=== PATIENT | male | born 1935 | race Caucasian/White ===

== ENCOUNTER 2018-07-16 16:50 | Inpatient (IN) | payer MEDICARE, OTHER ==
[~2018-07-16] VITALS: Ht 182.9 cm; Wt 59.4 kg
[~2018-07-16 16:50] MED LIST: AMLO5TAB9 PO; ASPI-1169 PO; CARB-93 PO; ENTA200T PO; HYDR-4384 PO; LEVE100023 PO; METO25TA20 PO; PRAM0.253 PO; QUET25TA PO
--- NOTE | 2018-07-16 17:10 | NUR ---
BIB [facility] FOR GEN WEAKNESS X 3DAYS. PT NOTED W R EAR WOUND W REDNESS AND SWELLING, ALSO NOTED W COLSOTOMY. TO ER BED 6, HOOKED TO MONITOR, CHANGED TO GOWN, PROVIDED W WARM BLANKET, DR YOUNG AT BEDSIDE.
[2018-07-16 17:19] LABS: BASOPHILS # (AUTO) 0.1 /CMM (0.0-0.2); BASOPHILS % (AUTO) 0.6 % (0.0-2.0); EOSINOPHILS % (AUTO) 2.6 % (0.0-6.0); HEMATOCRIT 29 % (39-51); HEMOGLOBIN 9.6 g/dL (13.5-17.5); LYMPHOCYTES # (AUTO) 1.8 /CMM (0.8-4.8); LYMPHOCYTES % (AUTO) 21.4 % (20.0-44.0); MEAN CORPUSCULAR HGB CONC 33 g/dl (31.0-36.0); MEAN CORPUSCULAR VOLUME 84 fL (80-96); MONOCYTES # (AUTO) 0.9 /CMM (0.1-1.30); NEUTROPHILS # (AUTO) 5.5 /CMM (1.8-8.9); NEUTROPHILS % (AUTO) 64.4 % (43.0-81.0); PLATELET COUNT (AUTO) 440 /CMM (150-450); RED BLOOD CELL COUNT(AUTO) 3.47 MIL/uL (4.5-6.0); WHITE BLOOD COUNT (AUTO) 8.6 K/uL (4.3-11.0)
[2018-07-16] MEDS ORDERED: MULT-594 PO (17:19)
[2018-07-16] MEDS ORDERED: AMIN30LI24 PO (17:19)
[2018-07-16] MEDS ORDERED: TAMS-12 GT (17:19)
[2018-07-16] MEDS ORDERED: DOCU-141 PO (17:19)
[2018-07-16] MEDS ORDERED: MAGN400O6 GT (17:19)
[2018-07-16] MEDS ORDERED: HYDR-4384 PO (17:19)
[2018-07-16] MEDS ORDERED: ACET-73 PO (17:19)
[2018-07-16] MEDS ORDERED: IV NS 0.9% 1,000 ML BAG IV ONE (17:30)
[2018-07-16 17:37] LABS: APPEARANCE,URINE Clear (CLEAR); BILIRUBIN,URINE Negative (NEGATIVE); BLOOD, URINE Negative Ery/uL (NEGATIVE); COLOR,URINE Yellow (YELLOW); KETONES,URINE Negative (NEGATIVE); LEUKOCYTE ESTERASE ,URINE Trace (NEGATIVE); NITRITE, URINE Negative (NEGATIVE); PROTEIN,URINE Negative (NEGATIVE); UGLUCOSE Negative (NEGATIVE); UROBILINOGEN,URINE 0.2 EU/dL (0.2)
--- NOTE | 2018-07-16 17:42 | NUR ---
PRACTICE OR STUDENT TEACHER AT BEDSIDE.
[2018-07-16 17:44] LABS: ALANINE AMINOTRANSFERASE 8 U/L (12-78); ALKALINE PHOSPHATASE 74 U/L (46-116); ASPARTATE AMINOTRANSFERASE 7 U/L (15-37); BILIRUBIN,DIRECT 0.1 mg/dL (0.0-0.2); BILIRUBIN,TOTAL 0.2 mg/dL (0.2-1.0); CALCIUM, SERUM 8.3 mg/dL (8.5-10.1); CARBON DIOXIDE 32 mmol/L (21-32); CHLORIDE 103 mmol/L (98-107); CREATININE 0.8 mg/dL (0.6-1.3); GLUCOSE 117 mg/dL (74-106); POTASSIUM 4.3 mmol/L (3.5-5.1); SODIUM SERUM 140 mmol/L (136-145); TOTAL PROTEIN, SERUM 7.4 g/dL (6.4-8.2); UREA NITROGEN, BLOOD 20 mg/dL (7-18)
[2018-07-16 17:50] LABS: RBC,URINE 0-2 /HPF (0-2)
[2018-07-16 17:51] LABS: BACTERIA,URINE Few /HPF (None Seen); SQUAMOUS EPITHELIAL CELL,UR Few /HPF (None Seen)
[2018-07-16] MEDS ORDERED: VANCOMYCIN 1 GM in IV D5W 250 ML IV ONE (18:00)
[2018-07-16] MEDS ORDERED: PIPERACILLIN /TAZOBACTAM 3.375 G in IV D5W 50 ML IV ONE (18:00)
--- NOTE | 2018-07-16 18:05 | NUR ---
CALLED PHARMACY TO ORDER IV ATB, PER PHARMACY, THERE IS REACTION BET ZOSYN AND CEFAZOLIN. INFORMED DR YOUNG, PER IT IS OK.
--- NOTE | 2018-07-16 18:07 | NUR ---
MS BED 206-2 GIVEN
--- NOTE | 2018-07-16 18:24 | NUR ---
REPORT GIVEN TO NGOZI SANDOVAL OF MED-SURG UNIT
--- NOTE | 2018-07-16 19:00 | NUR ---
MS RN NOTES RECEIVED PATIENT FROM ED IN STABLE CONDITION. NO DISTRESS NOTED. PATIENT AWAKE A/O X3 WITH EPISODES OF CONFUSION. REORIENTED NEEDED. NO C/O PAIN OR DISCOMFORT. PERIPHERAL LINE INTACT AND PATENT. DR. PEMBERTON MADE AWARE AND AWAITING ADMITTING ORDERS. BED IN LOW LOCK SETTING. BED ALARM ON AND FUNCTIONING PROPERLY. ALL BELONGINGS KEPT NEAR BEDSIDE. WILL CONTINUE TO MONITOR.
--- NOTE | 2018-07-16 19:00 | NUR ---
WHEELED OUT VIA GURNEY BY AN EMT AND TRANSFERRED TO MED-SURG UNIT.
[2018-07-16 20:00] VITALS: BP 104/61
[2018-07-16] MEDS ORDERED: ACETAMINOPHEN 325 MG TABLET PO PRN (23:00)
[2018-07-16] MEDS ORDERED: MAG HYDROX/AL HYDROX/SIMETH 30 ML UDC PO PRN (23:00)
[2018-07-16] MEDS ORDERED: IV NS 0.9% 1,000 ML BAG IV PRN (23:00)
[2018-07-16] MEDS ORDERED: MAGNESIUM HYDROXIDE 30 ML UDC PO PRN (23:00)
[2018-07-16] MEDS ORDERED: MORPHINE SULFATE INJ 2 MG/ML DISP.SYRIN IV PRN (23:00)
[2018-07-16] MEDS ORDERED: ONDANSETRON HCL/PF 4 MG/2 ML VIAL IVP PRN (23:00)
[2018-07-17] MEDS: IV NS 0.9% 1,000 ML IV PRN ×2 (01:54→21:43)
[2018-07-17] MEDS: LORAZEPAM INJ 2 MG/ML VIAL IV PRN ×2 (02:27→23:44)
--- NOTE | 2018-07-17 07:05 | NUR ---
MS RN NOTES PATIENT IN LYING BED EYES CLOSED, EASY TO AROUSE, RESPOND TO VERBAL AND TACTILE STIMULI. NO ACUTE DISTRESS NOTED. BREATHING UNLABORED. NO SOB NOTED. IV ACCESS PATENT AND INTACT, NO REDNESS OR SWELLING NOTED. SAFETY MEASURES IN PLACE. CALL LIGHT WITHIN REACH. WILL CONTINUE TO MONITOR ACCORDINGLY.
--- NOTE | 2018-07-17 07:14 | NUR ---
MS RN NOTES PATIENT ASLEEP IN BED WITH NO DISTRESS NOTED. CALL LIGHT WITHIN REACH. NO FURTHER C/O PAIN OR DISCOMFORT. PERIPHERAL LINE INTACT AND PATENT. OSTOMY BAG INTACT. BED IN LOW LOCK SETTING. BED ALARM ON AND FUNCTIONING PROPERLY. ALL BELONGINGS KEPT NEAR BEDSIDE. WILL ENDORSE TO ONCOMING SHIFT.
[2018-07-17 08:00] VITALS: BP 105/54
[2018-07-17] MEDS: PANTOPRAZOLE 40 MG VIAL IV SCH (08:43)
[2018-07-17] MEDS: ENTACAPONE 200 MG TABLET PO SCH ×3 (08:44→16:43)
[2018-07-17] MEDS: LEVETIRACETAM (250 MG) 250 MG TABLET PO SCH ×2 (08:44→20:26)
[2018-07-17] MEDS: MULTIVITAMINS,THERAGRAN 1 UDTAB TABLET PO SCH (08:44)
[2018-07-17] MEDS: ASPIRIN 81 MG TAB.CHEW PO SCH (08:44)
[2018-07-17] MEDS: DOCUSATE SODIUM 100 MG CAPSULE PO SCH (08:44)
[2018-07-17] MEDS: CARBIDOPA/LEVODOPA 25/100 MG 1 UDTAB PO SCH ×3 (08:45→16:43)
[2018-07-17] MEDS: PROSOURCE / PROSTAT (PYXIS) 30 ML UDC PO SCH (08:45)
[2018-07-17] MEDS: QUETIAPINE FUMARATE 25 MG TABLET PO SCH ×2 (08:45→16:43)
[2018-07-17] MEDS: PRAMIPEXOLE DI-HCL 0.25 MG TABLET PO SCH ×3 (08:45→16:43)
--- NOTE | 2018-07-17 09:59 | NUR ---
WOUND CARE CONSULT: PT PRESENTS WITH STAGE 2 SACRAL ULCER, LEFT LATERAL LEG INTACT DEEP TISSUE INJURY AND RT EAR LESIONS, ALL PRESENT ON ADMISSION. RECOMMEND SURGICAL CONSULT FOR RT EAR. DR ALLEN NOTIFIED OF SURGICAL CONSULT REQUEST. ALL SKIN PROTECTION AND WOUND CARE RECOMMENDATIONS DISCUSSED WITH NURSING STAFF. LOW AIRLOSS BED TO BE PLACED (ISOFLEX). PT IS INCONTINENT. PT IS SOMETIMES AGITATED AND COMBATIVE BUT COOPERATIVE AT TIMES WELL. WILL SEE PRJacinta VINCENT IN AGREEMENT WITH PLAN OF CARE. CURRENT FIONA SCORE IS 13. Addendum: 07/17/18 at 1003 by DELORIS NOYOLA WNDNU Amended: Links added.
[2018-07-17] MEDS ORDERED: HYDROGEL DRESSING 90 GM TUBE TP PRN (10:00)
[2018-07-17] MEDS ORDERED: Z GUARD REMEDY 2 OZ OINT TP PRN (10:00)
[2018-07-17] MEDS: Z GUARD REMEDY 2 OZ OINT TP SCH (11:32)
[2018-07-17] MEDS: HYDROGEL DRESSING 90 GM TUBE TP SCH (11:32)
[2018-07-17] MEDS: VANCOMYCIN 1 GM in IV D5W 250 ML IV SCH (13:06)
[2018-07-17] MEDS ORDERED: FEE PK DOSING 1 MIN EA MC ONE (14:57)
[2018-07-17 16:00] VITALS: BP 113/60
[2018-07-17] MEDS: TAMSULOSIN 0.4 MG CAP.SR.24H GT SCH (17:22)
--- NOTE | 2018-07-17 19:00 | NUR ---
MS RN NOTES PATIENT IN BED ALERT ORIENTED X 3. NO ACUTE DISTRESS NOTED. BREATHING UNLABORED. NO SOB NOTED. IV ACCESS PATENT AND INTACT, NO REDNESS OR SWELLING NOTED. DUE MEDICATIONS GIVEN, NO ASE NOTED. NEEDS ATTENDED AND ANTICIPATED. KEPT CLEAN DRY AND COMFORTABLE. SAFETY MEASURES IN PLACE. CALL LIGHT WITHIN REACH. ENDORSED TO NIGHT NURSE FOR CONTINUITY OF CARE.
[2018-07-17 20:00] VITALS: BP 109/75
[2018-07-17 20:02] VITALS: BP 109/75
--- NOTE | 2018-07-17 20:08 | NUR ---
RN OPENING NOTES RECEIVED PATIENT AWAKE IN BED. PATIENT IS A/O X 3. WITH EPISODES OF CONFUSION. NO SIGNS OF RESPIRATORY DISTRESS. PATIENT DENIES SHORTNESS OF BREATH. IV SITE INTACT. PATIENT DENIES PAIN AT THIS TIME. SAFETY PRECAUTIONS IMPLEMENTED. CALL LIGHT WITHIN REACH. WILL CONTINUE TO MONITOR PATIENT THROUGHOUT THE SHIFT.
--- NOTE | 2018-07-17 23:45 | NUR ---
RN NOTES PATIENT RECEIVED ATIVAN PRN FOR INSOMNIA, AGITATION. WILL CONTINUE TO MONITOR PATIENT.
[2018-07-18] MEDS: IV NS 0.9% 1,000 ML IV PRN (06:35)
[2018-07-18] MEDS: VANCOMYCIN 1 GM in IV D5W 250 ML IV SCH (06:35)
[2018-07-18 06:41] LABS: BASOPHILS # (AUTO) 0.1 /CMM (0.0-0.2); BASOPHILS % (AUTO) 0.8 % (0.0-2.0); EOSINOPHILS % (AUTO) 3.1 % (0.0-6.0); HEMATOCRIT 28 % (39-51); HEMOGLOBIN 9.4 g/dL (13.5-17.5); LYMPHOCYTES # (AUTO) 1.6 /CMM (0.8-4.8); LYMPHOCYTES % (AUTO) 22.1 % (20.0-44.0); MEAN CORPUSCULAR HGB CONC 34 g/dl (31.0-36.0); MEAN CORPUSCULAR VOLUME 82 fL (80-96); MONOCYTES # (AUTO) 0.6 /CMM (0.1-1.30); MONOCYTES % (AUTO) 9.2 % (2.0-12.0); NEUTROPHILS # (AUTO) 4.6 /CMM (1.8-8.9); NEUTROPHILS % (AUTO) 64.8 % (43.0-81.0); PLATELET COUNT (AUTO) 397 /CMM (150-450); RED BLOOD CELL COUNT(AUTO) 3.35 MIL/uL (4.5-6.0); WHITE BLOOD COUNT (AUTO) 7.1 K/uL (4.3-11.0)
--- NOTE | 2018-07-18 06:45 | NUR ---
RN CLOSING NOTES RECEIVED PATIENT AWAKE IN BED. PATIENT IS A/O X 3. NO SIGNS OF RESPIRATORY DISTRESS. PATIENT DENIES SHORTNESS OF BREATH. IV SITE INTACT. PATIENT DENIES PAIN AT THIS TIME. WOUND CARE TX WAS IMPLEMENTED . SAFETY PRECAUTIONS IMPLEMENTED. CALL LIGHT WITHIN REACH. WILL ENDORSE TO AM RN.
[2018-07-18 06:47] LABS: CHOLESTEROL 108 mg/dL (<200); HDL CHOLESTEROL 35 mg/dL (40-60); LDL 62 mg/dL (0-99); TRIGLYCERIDES 59 mg/dL (30-150)
[2018-07-18 06:50] LABS: CARBON DIOXIDE 25 mmol/L (21-32); CHLORIDE 103 mmol/L (98-107); CREATININE 0.7 mg/dL (0.6-1.3); GLUCOSE 92 mg/dL (74-106); MAGNESIUM 1.7 mg/dL (1.8-2.4); PHOSPHORUS 2.9 mg/dL (2.5-4.9); POTASSIUM 3.9 mmol/L (3.5-5.1); SODIUM SERUM 139 mmol/L (136-145); UREA NITROGEN, BLOOD 10 mg/dL (7-18)
--- NOTE | 2018-07-18 07:03 | NUR ---
RN OPENING NOTES RECEIVED PATIENT AWAKE IN BED. PATIENT IS A/O X 3 WITH SOME SIGNS OF CONFUSION. NO SIGNS OF RESPIRATORY DISTRESS. PATIENT DENIES SHORTNESS OF BREATH. IV SITE INTACT. PATIENT DENIES PAIN AT THIS TIME. WOUND CARE TX WAS IMPLEMENTED . SAFETY PRECAUTIONS IMPLEMENTED. CALL LIGHT WITHIN REACH. WILL CONTINUE TO MONITOR PATIENT THROUGHOUT THE SHIFT.
--- NOTE | 2018-07-18 07:03 | NUR ---
RN NOTES DISREGARD 07/18 729
--- NOTE | 2018-07-18 07:21 | NUR ---
RN OPENING NOTE PT WAS RECEIVED IN BED AT LOWEST AND LOCKED POSITION WITH SIDE RAILS UP X3, BREATHING EVEN AND UNLABORED ON RA, A/O X3, NO S/S OF ANY PAIN OR DISTRESS, NOTED TO HAVE COLOSTOMY AND CONDOM CATH, IV IS PATENT AND INTACT, SAFETY PRECAUTIONS IN PLACE, CALL LIGHT WITHIN REACH, WILL MONITOR PT ACCORDINGLY.
[2018-07-18 08:00] VITALS: BP 112/70
[2018-07-18] MEDS: QUETIAPINE FUMARATE 25 MG TABLET PO SCH ×2 (08:31→17:16)
[2018-07-18] MEDS: LEVETIRACETAM (250 MG) 250 MG TABLET PO SCH ×2 (08:31→20:17)
[2018-07-18] MEDS: CARBIDOPA/LEVODOPA 25/100 MG 1 UDTAB PO SCH ×3 (08:31→17:16)
[2018-07-18] MEDS: ENTACAPONE 200 MG TABLET PO SCH ×3 (08:31→17:16)
[2018-07-18] MEDS: PRAMIPEXOLE DI-HCL 0.25 MG TABLET PO SCH ×3 (08:32→17:16)
[2018-07-18] MEDS: DOCUSATE SODIUM 100 MG CAPSULE PO SCH (08:32)
[2018-07-18] MEDS: MULTIVITAMINS,THERAGRAN 1 UDTAB TABLET PO SCH (08:32)
[2018-07-18] MEDS: ASPIRIN 81 MG TAB.CHEW PO SCH (08:32)
[2018-07-18] MEDS: PANTOPRAZOLE 40 MG VIAL IV SCH (08:32)
[2018-07-18] MEDS: HYDROGEL DRESSING 90 GM TUBE TP SCH (08:33)
[2018-07-18] MEDS: Z GUARD REMEDY 2 OZ OINT TP SCH (08:33)
[2018-07-18] MEDS: PROSOURCE / PROSTAT (PYXIS) 30 ML UDC PO SCH (08:33)
[2018-07-18] MEDS: Magnesium 1GM/D5W 100ML PREMIX 100 ML IV SCH ×2 (11:29→12:31)
[2018-07-18] MEDS: ENSURE ENLIVE CHOC 237 ML CAN PO SCH ×2 (15:16→17:17)
[2018-07-18 16:00] VITALS: BP 99/74
--- NOTE | 2018-07-18 16:30 | NUR ---
RN NOTE PT CHANGED AND WOUND CARE PERFORMED AT THIS TIME
[2018-07-18] MEDS: TAMSULOSIN 0.4 MG CAP.SR.24H GT SCH (17:16)
--- NOTE | 2018-07-18 19:09 | NUR ---
RN CLOSING NOTE PT IN BED AT LOWEST AND LOCKED POSITION WITH SIDE RAILS UP X3, BREATHING EVEN AND UNLABORED , NO S/S OF ANY PAIN OR DISTRESS, COLOSTOMY AND CONDOM CATH IN PLACE, IV IS PATENT AND INTACT, SAFETY PRECAUTIONS IN PLACE, CALL LIGHT WITHIN REACH, ALL NEEDS ATTENDED TO, WILL ENDORSE TO INDUSTRIAL ELECTRICAL TECHNICIAN RN FOR JENNIFER.
[2018-07-18 20:08] VITALS: BP 102/56
[2018-07-18] MEDS: LORAZEPAM INJ 2 MG/ML VIAL IV PRN (20:14)
[2018-07-19] MEDS: VANCOMYCIN 1 GM in IV D5W 250 ML IV SCH ×2 (01:34→18:30)
[2018-07-19] MEDS: IV NS 0.9% 1,000 ML IV PRN (01:34)
--- NOTE | 2018-07-19 06:32 | NUR ---
MS RN NOTES AWAKE & RESPONSIVE. NOT IN ANY DISTRESS. NO SOB NOTED. DENIES ANY PAIN OR DISCOMFORT AT THIS TIME. WITH IVF INFUSING WELL. AM CARE DONE. MONITORED ACCORDINGLY. CALL LIGHT WITHIN REACH. BED IN LOWEST POSITION. SR UP X 3 FOR SAFETY WITH BED ALARM ON. WILL ENDORSE TO NEXT SHIFT.
--- NOTE | 2018-07-19 07:27 | NUR ---
MS RN OPENING NOTES RECEIVED PT AWAKE IN BED IN NO ACUTE SIGNS OF DISTRESS. HOB ELEVATED. A/O X2-3. VERBALLY RESPONSIVE. [place] AND CONFUSED. BREATHING EVEN AND UNLABORED ON RA. IV ACCESS ON LEFT HAND INTACT AND PATENT, IVF OF NS @ 75ML/HR INFUSING WELL. COLOSTOMY AND CONDOM CATHETER IN PLACE. SAFETY MEASURES IN PLACE. BED AT LOWEST AND LOCKED POSITION WITH SIDE RAILS UP X3. CALL LIGHT WITHIN REACH. WILL CONTINUE TO MONITOR PT ACCORDINGLY.
[2018-07-19] MEDS: ENSURE ENLIVE CHOC 237 ML CAN PO SCH ×3 (07:44→17:03)
[2018-07-19 08:00] VITALS: BP 103/53
[2018-07-19] MEDS: PROSOURCE / PROSTAT (PYXIS) 30 ML UDC PO SCH (09:00)
[2018-07-19] MEDS: ENTACAPONE 200 MG TABLET PO SCH ×3 (09:01→17:03)
[2018-07-19] MEDS: PRAMIPEXOLE DI-HCL 0.25 MG TABLET PO SCH ×3 (09:01→17:03)
[2018-07-19] MEDS: DOCUSATE SODIUM 100 MG CAPSULE PO SCH (09:01)
[2018-07-19] MEDS: CARBIDOPA/LEVODOPA 25/100 MG 1 UDTAB PO SCH ×3 (09:01→17:03)
[2018-07-19] MEDS: LEVETIRACETAM (250 MG) 250 MG TABLET PO SCH ×2 (09:01→21:35)
[2018-07-19] MEDS: ASPIRIN 81 MG TAB.CHEW PO SCH (09:01)
[2018-07-19] MEDS: QUETIAPINE FUMARATE 25 MG TABLET PO SCH ×2 (09:01→17:03)
[2018-07-19] MEDS: MULTIVITAMINS,THERAGRAN 1 UDTAB TABLET PO SCH (09:01)
[2018-07-19] MEDS: PANTOPRAZOLE 40 MG VIAL IV SCH (09:01)
[2018-07-19] MEDS: HYDROGEL DRESSING 90 GM TUBE TP SCH (09:02)
[2018-07-19] MEDS: Z GUARD REMEDY 2 OZ OINT TP SCH (09:02)
[2018-07-19 09:03] LABS: BASOPHILS % (AUTO) 0.7 % (0.0-2.0); EOSINOPHILS % (AUTO) 3.8 % (0.0-6.0); HEMATOCRIT 30 % (39-51); LYMPHOCYTES # (AUTO) 1.4 /CMM (0.8-4.8); LYMPHOCYTES % (AUTO) 21.8 % (20.0-44.0); MEAN CORPUSCULAR HGB CONC 33 g/dl (31.0-36.0); MEAN CORPUSCULAR VOLUME 83 fL (80-96); MONOCYTES # (AUTO) 0.6 /CMM (0.1-1.30); NEUTROPHILS # (AUTO) 4.2 /CMM (1.8-8.9); NEUTROPHILS % (AUTO) 64.7 % (43.0-81.0); PLATELET COUNT (AUTO) 395 /CMM (150-450); RED BLOOD CELL COUNT(AUTO) 3.59 MIL/uL (4.5-6.0); WHITE BLOOD COUNT (AUTO) 6.5 K/uL (4.3-11.0)
[2018-07-19 09:20] LABS: CALCIUM, SERUM 8.5 mg/dL (8.5-10.1); CARBON DIOXIDE 27 mmol/L (21-32); CHLORIDE 104 mmol/L (98-107); CREATININE 0.7 mg/dL (0.6-1.3); GLUCOSE 106 mg/dL (74-106); MAGNESIUM 2.1 mg/dL (1.8-2.4); PHOSPHORUS 2.9 mg/dL (2.5-4.9); POTASSIUM 4.4 mmol/L (3.5-5.1); SODIUM SERUM 140 mmol/L (136-145); UREA NITROGEN, BLOOD 9 mg/dL (7-18)
[2018-07-19 16:00] VITALS: BP 101/59
[2018-07-19] MEDS: TAMSULOSIN 0.4 MG CAP.SR.24H GT SCH (17:03)
--- NOTE | 2018-07-19 19:05 | NUR ---
received call from pharmacy. Will not give Vanco scheduled for 1900pm per .
--- NOTE | 2018-07-19 19:30 | NUR ---
RECEIVED PATIENT IN BED AWAKE. AO X 1, ABLE TO MAKE NEEDS KNOWN. NO ACUTE DISTRESS NOTED. NO SIGNS OF PAIN NOTED. IV SITE PATENT, INTACT; IVF INFUSING ORDERED. CONDOM CATH PATENT, INTACT; DRAINING CLEAR YELLOW URINE. SAFETY REMINDERS GIVEN. ON LOW BED WITH BILATERAL UPPER SIDE RAILS UP. CALL CONSTANTINO WITHIN EASY REACH. WILL CONTINUE TO MONITOR.
[2018-07-19 20:00] VITALS: BP_SYST 131; BP_SYST 90; BP_DIAS 53; BP_DIAS 75
[2018-07-19] MEDS ORDERED: PIPERACILLIN /TAZOBACTAM 3.375 G in IV D5W 50 ML IV ONE (20:00)
[2018-07-20] MEDS: PIPERACILLIN /TAZOBACTAM 3.375 G in IV D5W 100 ML IV SCH ×2 (01:53→08:35)
--- NOTE | 2018-07-20 06:00 | NUR ---
PATIENT ASLEEP, EASILY AROUSABLE. RESPIRATIONS EVEN. NO SIGNS OF PAIN NOTED. DUE MEDS GIVEN WITH NO ASE NOTED. IVF INFUSING ORDERED. NEEDS ATTENDED. KEPT CLEAN, DRY AND COMFORTABLE. WILL GIVE REPORT TO DAY SHIFT FOR CONTINUITY OF CARE.
[2018-07-20 06:35] LABS: CALCIUM, SERUM 7.9 mg/dL (8.5-10.1); CARBON DIOXIDE 29 mmol/L (21-32); CHLORIDE 103 mmol/L (98-107); CREATININE 0.7 mg/dL (0.6-1.3); GLUCOSE 90 mg/dL (74-106); SODIUM SERUM 140 mmol/L (136-145); UREA NITROGEN, BLOOD 14 mg/dL (7-18)
[2018-07-20 08:00] VITALS: BP 109/62
[2018-07-20] MEDS: ENTACAPONE 200 MG TABLET PO SCH ×3 (08:32→16:05)
[2018-07-20] MEDS: MULTIVITAMINS,THERAGRAN 1 UDTAB TABLET PO SCH (08:32)
[2018-07-20] MEDS: PRAMIPEXOLE DI-HCL 0.25 MG TABLET PO SCH ×3 (08:32→16:05)
[2018-07-20] MEDS: PANTOPRAZOLE 40 MG TABLET.DR PO SCH (08:32)
[2018-07-20] MEDS: LEVETIRACETAM (250 MG) 250 MG TABLET PO SCH ×2 (08:32→21:22)
[2018-07-20] MEDS: ASPIRIN 81 MG TAB.CHEW PO SCH (08:32)
[2018-07-20] MEDS: PROSOURCE / PROSTAT (PYXIS) 30 ML UDC PO SCH (08:33)
[2018-07-20] MEDS: QUETIAPINE FUMARATE 25 MG TABLET PO SCH ×2 (08:33→16:05)
[2018-07-20] MEDS: CARBIDOPA/LEVODOPA 25/100 MG 1 UDTAB PO SCH ×3 (08:33→16:05)
[2018-07-20] MEDS: DOCUSATE SODIUM 100 MG CAPSULE PO SCH (08:33)
[2018-07-20] MEDS: ENSURE ENLIVE CHOC 237 ML CAN PO SCH ×3 (08:34→19:08)
[2018-07-20] MEDS: Z GUARD REMEDY 2 OZ OINT TP SCH (09:00)
[2018-07-20] MEDS: HYDROGEL DRESSING 90 GM TUBE TP SCH (09:00)
[2018-07-20 16:00] VITALS: BP 90/54
[2018-07-20] MEDS: AMOX/CLAVULANATE 875 MG TABLET PO SCH ×2 (16:04→21:22)
[2018-07-20] MEDS: IV NS 0.9% 1,000 ML IV PRN (16:58)
[2018-07-20] MEDS: TAMSULOSIN 0.4 MG CAP.SR.24H GT SCH (17:08)
--- NOTE | 2018-07-20 19:00 | NUR ---
Patient resting in bed. A/O x2 , respirations unlabored and even on room air. No distress noted. All needs attended , patient kept clean and dry, turned and repositioned Q2H. IV line intact and patent. will endorse to next shift for JENNIFER.
--- NOTE | 2018-07-20 19:36 | NUR ---
MS RN NOTES RECEIVED PATIENT ASLEEP IN BED WITH NO DISTRESS NOTED. CALL LIGHT WITHIN REACH. NO C/O PAIN OR DISCOMFORT. PERIPHERAL LINE INTACT AND PATENT. BED IN LOW LOCK SETTING. BED ALARM ON AND FUNCTIONING PROPERLY. ALL BELONGINGS KEPT NEAR BEDSIDE. WILL CONTINUE TO MONITOR.
[2018-07-20 20:01] VITALS: BP 98/49
[2018-07-21] MEDS: IV NS 0.9% 1,000 ML IV PRN ×2 (05:35→18:47)
--- NOTE | 2018-07-21 06:02 | NUR ---
MS RN NOTES PATIENT ASLEEP IN BED WITH NO DISTRESS NOTED. CALL LIGHT WITHIN REACH. ALL DUE MEDS GIVEN ORDERED WITH NO ASE NOTED. PERIPHERAL LINE INTACT AND PATENT. NO C/O PAIN OR DISCOMFORT. BED IN LOW LOCK SETTING. BED ALARM ON AND FUNCTIONING PROPERLY. ALL BELONGINGS KEPT NEAR BEDSIDE. WILL ENDORSE TO ONCOMING SHIFT.
--- NOTE | 2018-07-21 07:10 | NUR ---
MS/RN OPENING NOTE THE PATIENT ALERT AND ORIENTED X3 WITH EPISODES OF CONFUSION. IN ROOM AIR AND DENIES SOB. RESPIRATION REGULAR AND UNLABORED. DENIES PAIN. THE PATIENT IS IN NO APPARENT DISTRESS. LFA G 22 PATENT AND NORMAL SALINE INFUSING AT 75ML/HR AND NO S/S INFILTRATION NOTED. BED LOW AND LOCKED. SIDE RAILS UP X3. CALL LIGHT WITHIN REACH. WILL CONTINUE TO MONITOR.
[2018-07-21 07:15] LABS: CALCIUM, SERUM 8.3 mg/dL (8.5-10.1); CARBON DIOXIDE 26 mmol/L (21-32); CHLORIDE 102 mmol/L (98-107); CREATININE 0.7 mg/dL (0.6-1.3); GLUCOSE 88 mg/dL (74-106); POTASSIUM 3.9 mmol/L (3.5-5.1); SODIUM SERUM 137 mmol/L (136-145); UREA NITROGEN, BLOOD 14 mg/dL (7-18)
[2018-07-21 08:00] VITALS: BP 96/67
[2018-07-21] MEDS: DOCUSATE SODIUM 100 MG CAPSULE PO SCH (08:00)
[2018-07-21] MEDS: MULTIVITAMINS,THERAGRAN 1 UDTAB TABLET PO SCH (08:00)
[2018-07-21] MEDS: PANTOPRAZOLE 40 MG TABLET.DR PO SCH (08:00)
[2018-07-21] MEDS: ASPIRIN 81 MG TAB.CHEW PO SCH (08:00)
[2018-07-21] MEDS: PRAMIPEXOLE DI-HCL 0.25 MG TABLET PO SCH ×3 (08:00→17:40)
[2018-07-21] MEDS: QUETIAPINE FUMARATE 25 MG TABLET PO SCH ×2 (08:00→17:40)
[2018-07-21] MEDS: CARBIDOPA/LEVODOPA 25/100 MG 1 UDTAB PO SCH ×3 (08:00→17:40)
[2018-07-21] MEDS: LEVETIRACETAM (250 MG) 250 MG TABLET PO SCH ×2 (08:00→21:13)
[2018-07-21] MEDS: ENTACAPONE 200 MG TABLET PO SCH ×3 (08:00→17:40)
[2018-07-21] MEDS: ENSURE ENLIVE CHOC 237 ML CAN PO SCH ×3 (08:01→17:00)
[2018-07-21] MEDS: AMOX/CLAVULANATE 875 MG TABLET PO SCH ×2 (08:43→21:15)
[2018-07-21] MEDS: PROSOURCE / PROSTAT (PYXIS) 30 ML UDC PO SCH (08:49)
[2018-07-21] MEDS: HYDROGEL DRESSING 90 GM TUBE TP SCH (08:52)
[2018-07-21] MEDS: Z GUARD REMEDY 2 OZ OINT TP SCH (08:53)
[2018-07-21 10:00] VITALS: BP 111/64
--- NOTE | 2018-07-21 12:00 | NUR ---
MS/RN NOTE THE PATIENT IS ALERT AND ORIENTED X2 WITH EPISODES OF CONFUSION. OIL HOUSE ATTENDANT ZHANG IS MADE AWARE.
[2018-07-21] MEDS: TAMSULOSIN 0.4 MG CAP.SR.24H GT SCH (17:40)
--- NOTE | 2018-07-21 18:02 | NUR ---
MS/RN CLOSING NOTE THE PATIENT ALERT AND ORIENTED X2 WITH EPISODES OF CONDITION. IN ROOM AIR AND SATURATION IS AT 95%. DENIES SOB. RESPIRATION REGULAR AND UNLABORED. DENIES PAIN. THE PATIENT IN NO APPARENT DISTRESS. LFA G 22 PATENT AND NORMAL SALINE INFUSING AT 75ML/HR AND NO S/S INFILTRATION. BED LOW AND LOCKED. SIDE RAILS UP X3. CALL LIGHT WITHIN REACH. WILL ENDORSE TO CAREER DEVELOPMENT CONSULTANT.
--- NOTE | 2018-07-21 19:40 | NUR ---
MS RN NOTES RECEIVED PATIENT ALERT AND ORIENTED X1 WITH EPISODES OF CONFUSION. IN ROOM AIR AND DENIES SOB. RESPIRATION REGULAR AND UNLABORED. DENIES PAIN. THE PATIENT IS IN NO APPARENT DISTRESS. LFA G 22 PATENT AND NORMAL SALINE INFUSING AT 75ML/HR AND NO S/S INFILTRATION NOTED. SAFETY MEASURES IN PLACED, ASPIRATION PRECAUTION EMPHASIZED, BED LOW AND LOCKED. SIDE RAILS UP X3. CALL LIGHT WITHIN REACH. WILL CONTINUE TO MONITOR ACCORDINGLY.
[2018-07-21] MEDS ORDERED: AMOX/CLAVULANATE 875 MG TABLET ONE (20:58)
[2018-07-22] MEDS: IV NS 0.9% 1,000 ML IV PRN ×2 (06:20→19:14)
--- NOTE | 2018-07-22 06:53 | NUR ---
RN NOTES ALL NEEDS ATTENDED, ABLE TO REST AND SLEEP AT INTERVALS, SAFETY MEASURES IN PLACED, ASPIRATION PRECAUTION OBSERVED, WILL ENDORSE TO AM NURSE FOR CONTINUITY OF CARE.
--- NOTE | 2018-07-22 07:05 | NUR ---
MS RN NOTES PATIENT IN BED EYES CLOSED, EASY TO AROUSE, RESPOND TO VERBAL AND TACTILE STIMULI. NO ACUTE DISTRESS NOTED, BREATHING UNLABORED. NO SOB NOTED. IV ACCESS PATENT AND INTACT, NO REDNESS OR SWELLING NOTED. SAFETY MEASURES IN PLACE. CALL LIGHT WITHIN REACH. WILL CONTINUE TO MONITOR ACCORDINGLY.
[2018-07-22] MEDS: ENSURE ENLIVE CHOC 237 ML CAN PO SCH ×3 (07:47→17:37)
[2018-07-22] MEDS: PANTOPRAZOLE 40 MG TABLET.DR PO SCH (07:47)
[2018-07-22 08:00] VITALS: BP 121/64
[2018-07-22 08:32] LABS: CALCIUM, SERUM 8.5 mg/dL (8.5-10.1); CARBON DIOXIDE 25 mmol/L (21-32); CHLORIDE 106 mmol/L (98-107); CREATININE 0.7 mg/dL (0.6-1.3); GLUCOSE 88 mg/dL (74-106); MAGNESIUM 1.9 mg/dL (1.8-2.4); POTASSIUM 3.9 mmol/L (3.5-5.1); SODIUM SERUM 140 mmol/L (136-145); UREA NITROGEN, BLOOD 12 mg/dL (7-18)
[2018-07-22] MEDS: LEVETIRACETAM (250 MG) 250 MG TABLET PO SCH ×2 (08:33→20:01)
[2018-07-22] MEDS: CARBIDOPA/LEVODOPA 25/100 MG 1 UDTAB PO SCH ×3 (08:33→17:37)
[2018-07-22] MEDS: ENTACAPONE 200 MG TABLET PO SCH ×3 (08:33→17:37)
[2018-07-22] MEDS: QUETIAPINE FUMARATE 25 MG TABLET PO SCH ×2 (08:33→17:37)
[2018-07-22] MEDS: PROSOURCE / PROSTAT (PYXIS) 30 ML UDC PO SCH (08:33)
[2018-07-22] MEDS: PRAMIPEXOLE DI-HCL 0.25 MG TABLET PO SCH ×3 (08:33→17:37)
[2018-07-22] MEDS: ASPIRIN 81 MG TAB.CHEW PO SCH (08:33)
[2018-07-22] MEDS: DOCUSATE SODIUM 100 MG CAPSULE PO SCH (08:33)
[2018-07-22] MEDS: MULTIVITAMINS,THERAGRAN 1 UDTAB TABLET PO SCH (08:33)
[2018-07-22] MEDS: Z GUARD REMEDY 2 OZ OINT TP SCH (08:34)
[2018-07-22] MEDS: HYDROGEL DRESSING 90 GM TUBE TP SCH (08:34)
[2018-07-22] MEDS: AMOX/CLAVULANATE 875 MG TABLET PO SCH ×2 (08:35→20:00)
[2018-07-22 08:54] LABS: BASOPHILS % (AUTO) 0.7 % (0.0-2.0); HEMATOCRIT 28 % (39-51); HEMOGLOBIN 9.2 g/dL (13.5-17.5); LYMPHOCYTES # (AUTO) 1.6 /CMM (0.8-4.8); LYMPHOCYTES % (AUTO) 27.9 % (20.0-44.0); MEAN CORPUSCULAR HGB CONC 33 g/dl (31.0-36.0); MEAN CORPUSCULAR VOLUME 83 fL (80-96); MONOCYTES # (AUTO) 0.5 /CMM (0.1-1.30); NEUTROPHILS # (AUTO) 3.5 /CMM (1.8-8.9); NEUTROPHILS % (AUTO) 59.4 % (43.0-81.0); PLATELET COUNT (AUTO) 383 /CMM (150-450); RED BLOOD CELL COUNT(AUTO) 3.37 MIL/uL (4.5-6.0); WHITE BLOOD COUNT (AUTO) 5.9 K/uL (4.3-11.0)
[2018-07-22 09:17] LABS: THYROID STIMULATING HORMONE 1.415 uIU/mL (0.358-3.74)
[2018-07-22 16:00] VITALS: BP 121/68
[2018-07-22] MEDS: TAMSULOSIN 0.4 MG CAP.SR.24H GT SCH (17:37)
--- NOTE | 2018-07-22 19:00 | NUR ---
MS RN NOTES PATIENT IN BED EYES CLOSED, EASY TO AROUSE, RESPOND TO VERBAL AND TACTILE STIMULI. NO ACUTE DISTRESS NOTED, BREATHING UNLABORED. NO SOB NOTED. IV ACCESS PATENT AND INTACT, NO REDNESS OR SWELLING NOTED. DUE MEDICATIONS GIVEN, NO ASE NOTED. NEEDS ATTENDED AND SAFETY MEASURES IN PLACE. CALL LIGHT WITHIN REACH. ENDORSE TO NIGHT NURSE FOR CONTINUITY OF CARE.
--- NOTE | 2018-07-22 19:25 | NUR ---
MS RN OPENING NOTES: RECEIVED PT ON ROOM AIR AND IS TOLERATING WELL. PT APPEARS TO BE CONFUSED HE IS BLABBERING WORDS. PT HAS COLOSTOMY BAG NOTED ON RLQ WITH FECES NOTED. PT ALSO HAS CONDOM CATH AND IS ATTACHED TO DRAINAGE BAG WITH YELLOW URINE DRAINING. PT HAS IV ON R FOREARM #24G AND IS BEING INFUSED WITH IV NS AT 75ML/HR. BED ALARM ACTIVATED. BED KEPT IN LOW, LOCKED POSITION, AND SIDE RAILS X 2UP. WILL CONTINUE TO MONITOR PT.
[2018-07-22 19:51] VITALS: BP 128/74
[2018-07-22 20:00] VITALS: BP 128/74
--- NOTE | 2018-07-22 20:30 | NUR ---
MS RN NOTES: CALLED [facility] [phone] AND LEFT A VOICEMAIL REGARDING CT CHEST, AB, PELVIS WITH CONTRAST FOR A CONSENT.
--- NOTE | 2018-07-23 06:06 | NUR ---
MS RN CLOSING NOTES: ALL NEEDS WERE ATTENDED AND ANTICIPATED FOR. PT KEPT CLEAN, DRY, AND COMFORTABLE. PT ASLEEP IN BED AT THIS TIME AND RESTING COMFORTABLY. PT ON 1LPM VIA NC AND IS TOLERATING WELL. IV REMAINS INTACT ON R FOREARM AND IS BEING INFUSED WITH IV NS AT 75ML/HR. PT HAS COLOSTOMY BAG ON RLQ AND HAS BEEN CHANGED. OUTPUT WAS 200ML. PT HAS CONDOM CATH AND IS ATTACHED TO DRAINAGE BAG WITH YELLOW URINE DRAINING. OUTPUT WAS 1500ML. BED ALARM ACTIVATED. PT TURNED AND REPOSITIONED Q2HRS. WOUND TX PERFORMED ORDERED. BED KEPT IN LOW, LOCKED POSITION, AND SIDE RAILS X 2UP. SIDE RAILS PADDED FOR SEIZURE PRECAUTIONS. WILL ENDORSE TO AM NURSE FOR JENNIFER.
[2018-07-23 06:28] LABS: CALCIUM, SERUM 8.1 mg/dL (8.5-10.1); CARBON DIOXIDE 26 mmol/L (21-32); CHLORIDE 103 mmol/L (98-107); CREATININE 0.6 mg/dL (0.6-1.3); GLUCOSE 82 mg/dL (74-106); POTASSIUM 3.8 mmol/L (3.5-5.1); SODIUM SERUM 139 mmol/L (136-145); UREA NITROGEN, BLOOD 12 mg/dL (7-18)
--- NOTE | 2018-07-23 07:33 | NUR ---
MS RN NOTES PATIENT RECEIVED RESTING INSIDE ROOM. AWAKE, ALERT AND ORIENTED TO SELF, VERBALLY RESPONSIVE, NO ACUTE DISTRESS NOTED AT THIS TIME. PATIENT CALM AND RELAXED. REORIENTED NEEDED. IV INTACT, IVF INFUSING WELL. COLOSTOMY BAG IN PLACE, CONDOM CATHETER IN PLACE WITH YELLOW URINE OUTPUT ON COLLECTING BAG. WILL CONTINUE TO MONITOR. BED LOCKED AND IN LOW POSITION. BILATERAL UPPER SIDE RAILS UP AND LOCKED. CALL LIGHT WITHIN EASY REACH
[2018-07-23] MEDS: ENSURE ENLIVE CHOC 237 ML CAN PO SCH ×3 (07:59→17:18)
[2018-07-23] MEDS: PANTOPRAZOLE 40 MG TABLET.DR PO SCH (07:59)
[2018-07-23 08:00] VITALS: BP 104/71
[2018-07-23] MEDS: QUETIAPINE FUMARATE 25 MG TABLET PO SCH ×2 (08:00→17:18)
[2018-07-23] MEDS: AMOX/CLAVULANATE 875 MG TABLET PO SCH ×2 (08:00→20:17)
[2018-07-23] MEDS: MULTIVITAMINS,THERAGRAN 1 UDTAB TABLET PO SCH (08:00)
[2018-07-23] MEDS: ASPIRIN 81 MG TAB.CHEW PO SCH (08:00)
[2018-07-23] MEDS: LEVETIRACETAM (250 MG) 250 MG TABLET PO SCH ×2 (08:00→20:17)
[2018-07-23] MEDS: CARBIDOPA/LEVODOPA 25/100 MG 1 UDTAB PO SCH ×3 (08:00→17:19)
[2018-07-23] MEDS: DOCUSATE SODIUM 100 MG CAPSULE PO SCH (08:00)
[2018-07-23] MEDS: PROSOURCE / PROSTAT (PYXIS) 30 ML UDC PO SCH (08:03)
[2018-07-23] MEDS: ENTACAPONE 200 MG TABLET PO SCH ×3 (08:03→17:18)
[2018-07-23] MEDS: Z GUARD REMEDY 2 OZ OINT TP SCH (08:03)
[2018-07-23] MEDS: PRAMIPEXOLE DI-HCL 0.25 MG TABLET PO SCH ×3 (08:03→17:19)
[2018-07-23] MEDS: HYDROGEL DRESSING 90 GM TUBE TP SCH (08:04)
[2018-07-23 08:07] LABS: IMMUNOGLOBULIN A, SERUM 671 mg/dL (61-437); IMMUNOGLOBULIN G, SERUM 1209 mg/dL (700-1600); IMMUNOGLOBULIN M, SERUM 93 mg/dL (15-143)
--- NOTE | 2018-07-23 09:40 | NUR ---
NO CONSENT STILL FOR CT CHEST ABDOMEN PELVIS WITH CONTRAST
[2018-07-23 12:07] LABS: *SPE A/G RATIO 0.8 (0.7-1.7); *SPE ALBUMIN 2.7 g/dL (2.9-4.4); *SPE ALPHA-1-GLOBULIN 0.3 g/dL (0.0-0.4); *SPE ALPHA-2-GLOBULIN 0.9 g/dL (0.4-1.0); *SPE BETA GLOBULIN 1.2 g/dL (0.7-1.3); *SPE GLOBULIN, TOTAL 3.5 g/dL (2.2-3.9); *SPE M-SPIKE Not Observed g/dL (Not Observed); *SPEGAMMA GLOBULIN 1.1 g/dL (0.4-1.8)
[2018-07-23] MEDS: IV NS 0.9% 1,000 ML IV PRN (15:37)
[2018-07-23 16:00] VITALS: BP 106/72
[2018-07-23] MEDS: TAMSULOSIN 0.4 MG CAP.SR.24H GT SCH (17:19)
[2018-07-23 18:38] LABS: OCCULT BLOOD STOOL NEGATIVE (NEGATIVE)
--- NOTE | 2018-07-23 18:40 | NUR ---
MS RN NOTES PATIENT RESTING INSIDE ROOM. AWAKE, ALERT AND ORIENTED TO SELF, NO ACUTE DISTRESS AT THIS TIME. PATIENT CALM AND RELAXED. PATIENT KEPT CLEAN, DRY AND COMFORTABLE.COLOSTOMY BAG CHANGED. CONDOM CATH IN PLACE WITH YELLOW URINE OUTPUT. IVF INFUSING WELL. WILL ENDORSE TO INCOMING SHIFT FOR JENNIFER. BED LOCKED AND IN LOW POSITION. BILATERAL UPPER SIDE RAILS UP AND LOCKED. CALL LIGHT WITHIN EASY REACH
--- NOTE | 2018-07-23 19:15 | NUR ---
MS RN OPENING NOTES: RECEIVED PT ON 1LPM VIA NC AND IS TOLERATING WELL. PT APPEARS TO BE CONFUSED HE IS BLABBERING TO HIMSELF. PT HAS CONDOM CATH AND IS ATTACHED TO DRAINAGE BAG WITH YELLOW URINE DRAINING. PT ALSO HAS COLOSTOMY BAG ON RLQ. PT HAS IV ON R FOREARM #24 G AND IS BEING INFUSED WITH IV NS AT 75ML/HR. PT ALSO HAS IV ON R AC #18G AND IS PATENT AND INTACT. BED KEPT IN LOW, LOCKED POSITION, AND SIDE RAILS X 2UP. BED ALARM ACTIVATED. WILL CONTINUE TO MONITOR PT.
[2018-07-23 20:00] VITALS: BP 113/64
[2018-07-24] MEDS: IV NS 0.9% 1,000 ML IV PRN (04:11)
--- NOTE | 2018-07-24 06:03 | NUR ---
MS RN CLOSING NOTES: ALL NEEDS WERE ATTENDED AND ANTICIPATED FOR. PT KEPT CLEAN, DRY, AND COMFORTABLE. WOUND TX PERFORMED ORDERED. PT TURNED AND REPOSITIONED Q2HR. PT ON 1LPM VIA NC AND IS TOLERATING WELL. NO SOB NOTED. NO S/S OF DISTRESS. PT FREQUENTLY REORIENTED PRN. PT HAS COLOSTOMY BAG ON RLQ. PT ALSO HAS CONDOM CATH AND IS ATTACHED TO DRAINAGE BAG WITH YELLOW URINE DRAINING. PT HAS IV AND IS BEING INFUSED WITH IV NS AT 75ML/HR. BED KEPT IN LOW, LOCKED POSITION, AND SIDE RAILS X 2 UP. OTHER IV REMAINS INTACT WELL AND H/L. BED ALARM ACTIVATED. WILL ENDORSE TO AM NURSE FOR JENNIFER.
--- NOTE | 2018-07-24 07:55 | NUR ---
MS RN NOTES PATIENT RECEIVED RESTING INSIDE ROOM. SLEEPING, EASILY AROUSABLE THROUGH VERBAL AND TACTILE STIMULI. PATIENT CONFUSED, ORIENTED TO SELF, REORIENTED NEEDED. O2 AT 1L/MIN VIA NC. NO ACUTE DISTRESS AT THIS TIME. CONDOM CATHETER IN PLACE WITH YELLOW URINE OUTPUT NOTED ON COLLECTING BAG. COLOSTOMY BAG IN PLACE. IVF INFUSING WELL. WILL CONTINUE TO MONITOR. BED LOCKED AND IN LOW POSITION. BILATERAL UPPER SIDE RAILS UP AND LOCKED. CALL LIGHT WITHIN EASY REACH
[2018-07-24 08:00] VITALS: BP 109/67
[2018-07-24] MEDS: PANTOPRAZOLE 40 MG TABLET.DR PO SCH (08:12)
[2018-07-24] MEDS: AMOX/CLAVULANATE 875 MG TABLET PO SCH (08:12)
[2018-07-24] MEDS: PRAMIPEXOLE DI-HCL 0.25 MG TABLET PO SCH ×3 (08:12→17:07)
[2018-07-24] MEDS: ENTACAPONE 200 MG TABLET PO SCH ×3 (08:12→17:07)
[2018-07-24] MEDS: LEVETIRACETAM (250 MG) 250 MG TABLET PO SCH (08:12)
[2018-07-24] MEDS: QUETIAPINE FUMARATE 25 MG TABLET PO SCH ×2 (08:12→17:07)
[2018-07-24] MEDS: MULTIVITAMINS,THERAGRAN 1 UDTAB TABLET PO SCH (08:12)
[2018-07-24] MEDS: DOCUSATE SODIUM 100 MG CAPSULE PO SCH (08:12)
[2018-07-24] MEDS: ASPIRIN 81 MG TAB.CHEW PO SCH (08:12)
[2018-07-24] MEDS: PROSOURCE / PROSTAT (PYXIS) 30 ML UDC PO SCH (08:12)
[2018-07-24] MEDS: CARBIDOPA/LEVODOPA 25/100 MG 1 UDTAB PO SCH ×3 (08:12→17:07)
[2018-07-24] MEDS: Z GUARD REMEDY 2 OZ OINT TP SCH (08:13)
[2018-07-24] MEDS: ENSURE ENLIVE CHOC 237 ML CAN PO SCH ×3 (08:13→17:07)
[2018-07-24] MEDS: HYDROGEL DRESSING 90 GM TUBE TP SCH (08:13)
[2018-07-24] MEDS ORDERED: IOHEXOL-300 100 ML VIAL IV ONE (12:05)
[2018-07-24] MEDS ORDERED: CT SWABBABLE VALVE TRANS SET 1 EA INFUS.SET MC ONE (12:05)
[2018-07-24] MEDS ORDERED: IV NS 0.9% 250 ML IV ONE (12:05)
[2018-07-24] MEDS ORDERED: Amox/Clavulanate PO (12:53)
[2018-07-24] MEDS ORDERED: SOD FERRIC GLUC 125 MG in IV NS 0.9% 100 ML IV SCH (14:00)
--- NOTE | 2018-07-24 15:37 | NUR ---
MS RN NOTES PLACED CALL TO NANCY COTA ([phone]), REPORT GIVEN TO CECY SANDOVAL
[2018-07-24 16:00] VITALS: BP 111/63
[2018-07-24] MEDS: TAMSULOSIN 0.4 MG CAP.SR.24H GT SCH (17:07)
--- NOTE | 2018-07-24 18:20 | NUR ---
MS RN NOTES PATIENT TO DISCHARGE TODAY TO [facility]. DISCHARGE INSTRUCTIONS AND EDUCATION PROVIDED. NO MISSING INVENTORY ON DISCHARGE. IV REMOVED WITH MINIMAL BLEEDING NOTED, IV TIP INTACT, PRESSURE DRESSING PLACED ON SITE. COLOSTOMY BAG CHANGED. CONDOM CATHETER IN PLACE WITH YELLOW URINE OUTPUT ON COLLECTING BAG. PATIENT LEFT UNIT AT 1815 VIA STRETCHER IN STABLE CONDITION. NO ACUTE DISTRESS. NO C/O PAIN OR DISCOMFORT. NO NEW SKIN BREAKDOWN ON DISCHARGE. MD AWARE OF DISCHARGE Addendum: 07/24/18 at 1834 by ANNALISE MARTINS RN CORRECTION: PATIENT DISCHARGED TO [facility]
== END 2018-07-24 18:28 | DRG 154 ==
LOC: ER 17:01 → MEDSG2 18:33
PROVIDERS: ADMIT Nurse Practitioner Acute Care
DX: H60.11 Cellulitis of right external ear (principal); E43 Unspecified severe protein-calorie malnutrition; G93.41 Metabolic encephalopathy; N17.9 Acute kidney failure, unspecified; Z68.1 Body mass index [BMI] 19.9 or less, adult; D68.59 Other primary thrombophilia; R64 Cachexia; F02.81 Dementia in other diseases classified elsewhere, unspecified severity, with behavioral disturbance; I10 Essential (primary) hypertension; G40.909 Epilepsy, unspecified, not intractable, without status epilepticus; G20 Parkinson's disease; Z86.73 Personal history of transient ischemic attack (TIA), and cerebral infarction without residual deficits; N40.0 Benign prostatic hyperplasia without lower urinary tract symptoms; F29 Unspecified psychosis not due to a substance or known physiological condition; Z88.2 Allergy status to sulfonamides; C44.202 Unspecified malignant neoplasm of skin of right ear and external auricular canal; E86.1 Hypovolemia; I95.9 Hypotension, unspecified; D63.8 Anemia in other chronic diseases classified elsewhere; Z74.01 Bed confinement status; E88.09 Other disorders of plasma-protein metabolism, not elsewhere classified; R53.1 Weakness; L98.8 Other specified disorders of the skin and subcutaneous tissue; C44.91 Basal cell carcinoma of skin, unspecified; Z74.09 Other reduced mobility; L98.9 Disorder of the skin and subcutaneous tissue, unspecified
CPT/HCPCS: 36415; 71045-TC; 71260-TC; 80048-TC; 80061-TC; 80076-TC; 80202-TC; 81000-TC; 82272-TC; 82728-TC; 82784; 83540-TC; 83605-TC; 83735-TC; 84100-TC; 84155; 84165; 84443-TC; 84484-TC; 85025-TC; 85730-TC; 86334; 87040-TC; 87070-TC; 87081-TC; 87086-TC; 87186-TC; A4349; A6248; A6253; A6402; A6403; C9113; G0378; J2060; J2543; J2916; J3370; J3475; J7030; J7040; J7050; J7060; Q9967